=== PATIENT | female | born 1945 | race Caucasian/White ===

== ENCOUNTER → 2025-07-01 03:17 | Emergency (ER) | payer MEDICARE, OTHER, SELFPAY ==
[2025-07-01 03:21] VITALS: BP 156/64; BMI 28.0
[2025-07-01 03:23] VITALS: BP 156/64
[2025-07-01 04:00] VITALS: BP 145/62
[2025-07-01] MEDS: DILAUDID 1 MG IV ×2 (04:00→04:55)
--- NOTE | 2025-07-01 04:13 | ED.GENMED ---
History of Present Illness
General
Chief Complaint: Back Pain
Source: patient
Exam Limitations: none
Time Seen by Provider: 07/01/25 03:20
Nursing documentation reviewed up to this point in time: agreed with
History of Present Illness
History of Present Illness:
79-year-old female past ministry of metastatic lung cancer hypertension diabetes presenting to the emergency department today with concerns of ongoing chronic back pain that she has had ongoing. She is taking morphine for this but it still has some
breakthrough pain at this time. She is seeking further pain control at this time denies any weakness of breath or chest pain.
Review of Systems
Review of Systems
Allergies reviewed?: Yes
All Other Systems: ROS reviewed and negative except as documented in HPI and ROS
Phy Exam
Physical Exam
Physical Exam:
GENERAL: Alert , in no apparent distress
EYE: pupils equal and reactive
NECK: Supple, no significant adenopathy.
ENT: o/p clr, mmm.
CARDIAC: Regular rate and rhythm .
LUNGS: Clear breath sounds bilaterally, no acute respiratory distress, no wheezes/rales/rhonchi
ABDOMEN: Soft, without focal tenderness, no r/g, no cvat
NEUROLOGICAL: Alert and oriented, no focal neuro deficits
SKIN: Warm and dry, skin intact.
MUSCULOSKELETAL: No edema, well perfused.
PSYCH: Normal and appropriate interaction.
Course
Orders/Labs/Results
Orders:
Orders
07/01/25 03:40
HYDROmorphone [Dilaudid] 1 mg IV NOW STA
07/01/25 04:48
HYDROmorphone [Dilaudid] 1 mg IV NOW STA
Vital Signs
Initial and Last Documented VS:
Initial Vital Signs
Temp Pulse Resp BP Pulse Ox
98.7 F 88 18 156/64 95
07/01/25 03:21 07/01/25 03:21 07/01/25 03:21 07/01/25 03:21 07/01/25 03:21
Last Documented Vital Signs
Temp Pulse Resp BP Pulse Ox
98.7 F 83 16 145/62 90
07/01/25 03:21 07/01/25 04:30 07/01/25 04:30 07/01/25 04:00 07/01/25 04:30
MDM/Problems Addressed
MDM/Problems Addressed:
79-year-old female presenting to the emergency department today with concerns of ongoing chronic back pain associated with her metastatic cancer. She is seeking pain medication at this time denies any additional concerning symptoms. Hypertensive
otherwise vital signs are normal. Patient was given 2 doses of Dilaudid here with significant improvement of symptoms. Patient sleeping at time of reassessment patient appears stable for close outpatient follow-up. Return precautions given.
*Pulse Oximetry
SaO2: 94
Oxygen Mode of Delivery: Room air
Patient hypoxic: no (92)
*Critical Care Note
Total Time (30-74mins, 75-104mins- exclusive of procedures): Not Applicable
ED Attending Note
-
Portions of this chart may have been created with voice recognition software.� Occasional wrong word or��sound alike� substitutions may have occurred due to the inherent limitations of voice recognition software.
Discharge Plan
Departure
Patient Disposition: Home (Routine Discharge)
Date of Disposition: 07/01/25
Time of Disposition: 05:37
Patient with high blood pressure during this ER visit?: No
Condition: Good
Covid-19: Not Applicable
Discharge Problem:
Back pain
Instructions: Back Pain
Prescriptions:
No Action
atorvastatin 40 mg Tablet
40 mg PO DAILY
acetaminophen [Tylenol] 325 mg Tablet
650 mg PO Q6H PRN (Reason: nausea )
carvedilol 12.5 mg Tablet
12.5 mg PO BID
ondansetron HCl [Zofran] 4 mg Tablet
4 mg PO Q6H
amlodipine 5 mg Tablet
5 mg PO DAILY
dexamethasone 2 mg Tablet
2 mg PO BID
glimepiride 4 mg Tablet
4 mg PO BID
ibuprofen [Advil] 200 mg Tablet
200 mg PO Q6H PRN (Reason: pain)
morphine 15 mg Tablet
15 mg PO Q6H PRN (Reason: pain)
Trintellix 20 mg Tablet
20 mg PO DAILY
Referrals:
Roger Talavera MD [Family Provider]
Activity Restrictions/Additional Instructions:
You came to the emergency department today with concerns of ongoing pain. Please follow-up closely with your outpatient doctor. Return for any worsening, new or concerning symptoms.
Interventions
Interventions:
*Risk Screen - Suicide Last Done: 07/01/25 03:21
*General Assessment Last Done: 07/01/25 03:21
*Neglect/Abuse Screening Last Done: 07/01/25 03:21
*ED- Fall Risk Assessment Last Done: 07/01/25 03:21
*ED COVID-19 Vaccine History Last Done: 07/01/25 03:21
*ED Influenza Vaccine History Last Done: 07/01/25 03:21
ED-Musculoskeletal Assessment Last Done: 07/01/25 03:51
Discharge Date and Time
Print Language: [id number]
[2025-07-01 05:00] VITALS: BP 134/52
== END | disposition home or self-care (01) ==
LOC: EMR 03:17
PROVIDERS: EMERGENCY PHYSICIAN Emergency Medicine; FAMILY PHYSICIAN Internal Medicine
DX: M54.9 Dorsalgia, unspecified (principal); C34.90 Malignant neoplasm of unspecified part of unspecified bronchus or lung; C79.9 Secondary malignant neoplasm of unspecified site; E11.9 Type 2 diabetes mellitus without complications; I10 Essential (primary) hypertension
CPT/HCPCS: 99282; 96374; 96376